=== PATIENT | female | born 1940 | race Caucasian/White ===

== ENCOUNTER → 2017-05-10 | Outpatient (CLI) | payer OTHER | LOC: CIMAGING 14:23 | PROVIDERS: ATTEND Internal Medicine | DX: Z12.31 Encounter for screening mammogram for malignant neoplasm of breast (principal) | CPT/HCPCS: G0202 ==

== ENCOUNTER → 2017-11-29 | Outpatient (CLI) | payer OTHER | LOC: CIMAGING 15:03 | PROVIDERS: ATTEND Nurse Practitioner | DX: M79.605 Pain in left leg (principal) | CPT/HCPCS: 93971-PO ==

== ENCOUNTER → 2018-04-09 | Outpatient (CLI) | payer OTHER | LOC: BHFA 16:00 | PROVIDERS: ATTEND Internal Medicine Interventional Cardiology | DX: E78.5 Hyperlipidemia, unspecified (principal); I47.1 Supraventricular tachycardia ==

== ENCOUNTER → 2018-04-29 | Outpatient (CLI) | payer OTHER | LOC: BHFA 13:30 | PROVIDERS: ATTEND Internal Medicine Cardiovascular Disease | DX: I47.1 Supraventricular tachycardia (principal) | CPT/HCPCS: 78452; 93017; A9500 ==

== ENCOUNTER → 2018-07-17 | Outpatient (CLI) | payer OTHER | LOC: CIMAGING 10:04 | PROVIDERS: ATTEND Internal Medicine | DX: Z12.31 Encounter for screening mammogram for malignant neoplasm of breast (principal) ==

== ENCOUNTER 2018-07-24 11:45 | Observation (INO) | payer OTHER ==
[2018-07-24] MEDS ORDERED: NS 1,000 ML IV ONE (11:49)
[2018-07-24 12:30] LABS: PLATELET COUNT 232 10^3/uL (150-400)
[2018-07-24 12:37] LABS: INR 0.97 (0.83-1.16); PROTIME(PATIENT) 13.1 SEC (12.0-15.0)
[2018-07-24] MEDS ORDERED: LIDOCAINE 1% 300 MG/30 ML SDV ONE (14:21)
[2018-07-24] MEDS ORDERED: HEPARIN 10,000 UNIT/10 ML MDV (1,000 UNIT/ML) ONE (14:22)
[2018-07-24] MEDS ORDERED: BUPIVACAINE 0.75% 10 ML SDV ONE (14:22)
[2018-07-24] MEDS ORDERED: ISOPROTERENOL HCL/D5W 0.2 MG/50 ML BAG IV ONE ×2 (14:22→15:42)
--- NOTE | 2018-07-24 14:30 | PDANEPAE ---
ANE Past Medical History - Cardiovascular History Hx Arrhythmias: Yes - Pulmonary History Hx Sleep Apnea: No - Endocrine History Hx Diabetes: No Hypothyroid: No Hyperthyroid: No Obesity: no ANE Review of Systems Review of Systems: ANE Patient History - Allergies Allergies/Adverse Reactions: butorphanol tartrate [From Stadol] Allergy (Intermediate, Verified 06/22/14 12: 34) RESPIRATORY DEPRESSION cephalexin monohydrate [From Keflex] Allergy (Intermediate, Verified 06/22/14 10 :22) Rash levofloxacin [Levofloxacin] Allergy (Intermediate, Verified 06/22/14 10:22) Rash nitrofurantoin [From Macrobid] Allergy (Intermediate, Verified 06/22/14 10:22) Rash nitrofurantoin macrocrystalline [From Macrobid] Allergy (Intermediate, Verified 06/22/14 10:22) Rash Penicillins Allergy (Intermediate, Verified 06/22/14 10:22) Rash - Home Medications Home Medications: Losartan/Hctz 50/12.5 [Hyzaar 50/12.5MG (*)] 1 tab PO DAILY 12/11/09 [Last Taken Unknown] Montelukast Sodium [Singulair 10 mg (*)] 10 mg PO DAILY 06/22/14 [Last Taken Unknown] Cholecalciferol Vit D3 [Vitamin D3 (*)] 1,000 units PO DAILY 07/17/18 [Last Taken Unknown] Omeprazole 20 mg PO DAILY 07/17/18 [Last Taken Unknown] - Smoking Hx Smoking Status: Former smoker ANE Labs/Vital Signs - Labs Result Diagrams: 07/24/18 12:00 07/24/18 12:00 - Vital Signs Height: 167.64 cm Weight: 57.606 kg ANE Physical Exam - Airway Neck exam: decreased ROM Mallampati Score: Class 1 Mouth exam: normal dental/mouth exam - Pulmonary Pulmonary: no respiratory distress - Cardiovascular Cardiovascular: regular rate and rhythym - ASA Status ASA Status: II ANE Anesthesia Plan Anesthesia Plan: general endotracheal anesthesia
[2018-07-24] MEDS ORDERED: DEXAMETHASONE 4 MG/ML VIAL ONE (14:47)
[2018-07-24] MEDS ORDERED: ROCURONIUM 100 MG/10 ML VIAL ONE (14:47)
[2018-07-24] MEDS ORDERED: ONDANSETRON 4 MG/2 ML VIAL ONE (14:47)
[2018-07-24] MEDS ORDERED: PROPOFOL/EMULSION 500 MG/50 ML BOTTLE IV ONE ×2 (14:48→15:49)
[2018-07-24] MEDS ORDERED: fentaNYL 100 MCG/2 ML INJ ONE (14:48)
--- NOTE | 2018-07-24 23:40 | POSTANESTH ---
Post Anesthetic Evaluation Cardiovascular Status: Normal, Stable Respiratory Status: Normal, Stable Level of Consciousness/Mental Status: Can Participate in Eval Pain Control: Adequate, Prn Tx Ordered Nausea/Vomiting Control: Adequate, Prn Tx Ordered Complications Possibly Related to Anesthesia: None Noted
[2018-07-25 05:22] LABS: PLATELET COUNT 182 10^3/uL (150-400)
[2018-07-25 07:10] VITALS: BP 130/65
[2018-07-25] MEDS ORDERED: IBUPROFEN 200 MG TAB PO ONE (07:42)
[2018-07-25] MEDS ORDERED: CHOLECALCIFEROL VIT D3 1,000 UNITS TAB PO SCH (09:00)
[2018-07-25] MEDS ORDERED: MONTELUKAST SODIUM 10 MG TAB PO SCH (09:00)
[2018-07-25] MEDS ORDERED: PROPAFENONE HCL SR 225 MG CAP PO SCH (09:00)
[2018-07-25] MEDS ORDERED: LOSARTAN/HCTZ 50/12.5 1 TAB PO SCH (09:00)
[2018-07-25] MEDS ORDERED: PANTOPRAZOLE SODIUM 40 MG TAB PO SCH (09:00)
--- NOTE | 2018-07-25 10:31 | ASDISCHSUM ---
Discharge Information Plan Status:Home with No Needs Medically Cleared to Leave:07/24/2018 Discharge Date:07/24/2018 CM D/C Disposition:Home, Routine, Self-Care ADT D/C Disposition:Home, Routine, Self-Care Projected Discharge Date:07/24/2018 Transportation at D/C:Family Discharge Delay Reason: Follow-Up Date:07/24/2018 Discharge Slot: Final Diagnosis: Placement Information Patient Contact Information Contact Name:GALO Relationship:Friend Address:[address] Work Phone: City:[facility] Phone: State/Zip Code: Email: Financial Information Financial Class:Medicare Primary Plan Desc:MEDICARE OUTPATIENT Primary Plan Number:[id number] Secondary Plan Desc:HUMA[employer] Secondary Plan Number:[id number] Assessment Information LACE LACE Length of stay for Answers: Less than 1 day current admission Acuity / Level of Answers: No Care: Did the patient have an inpatient admission? # of Emergency department Answers: 0 visits in the last 6 months Date Signed: 07/25/2018 10:30 AM Electronically Signed By:Zofia Keller RN Intervention Information Intervention Type:*LAINEY-Signed Date of Service:07/25/2018 10:13 AM Patient Type:Observation Staff Member:Shelia Hayes Hours: Discipline: Severity: Comment:
--- NOTE | 2018-07-25 19:52 | CPEKG ---
Test Reason : OPEN Blood Pressure : / mmHG Vent. Rate : 079 BPM Atrial Rate : 079 BPM P-R Int : 143 ms QRS Dur : 074 ms QT Int : 388 ms P-R-T Axes : 074 046 -38 degrees QTc Int : 445 ms Sinus rhythm Probable left atrial enlargement Confirmed by Kj Pimentel ([id number]) on 07/25/2018 7:52:45 PM Referred By: Kj Pimentel Confirmed By:Kj Pimentel
--- NOTE | 2018-07-25 20:03 | CPEKG ---
Test Reason : OPEN Blood Pressure : / mmHG Vent. Rate : 099 BPM Atrial Rate : 100 BPM P-R Int : 138 ms QRS Dur : 084 ms QT Int : 338 ms P-R-T Axes : 081 045 002 degrees QTc Int : 434 ms Sinus rhythm Right atrial enlargement Minimal ST depression, anterolateral leads Confirmed by Kj Pimentel ([id number]) on 07/25/2018 8:02:26 PM Referred By: jK Pimentel Confirmed By:Kj Pimentel
--- NOTE | 2018-07-25 20:03 | CPEKG ---
Test Reason : OPEN Blood Pressure : / mmHG Vent. Rate : 069 BPM Atrial Rate : 069 BPM P-R Int : 137 ms QRS Dur : 093 ms QT Int : 420 ms P-R-T Axes : 051 048 003 degrees QTc Int : 450 ms Sinus rhythm Confirmed by Kj Pimentel ([id number]) on 07/25/2018 8:02:35 PM Referred By: Kj Pimentel Confirmed By:Kj Pimentel
--- NOTE | 2018-07-26 05:40 | GDS ---
[f rep st] DISCHARGE SUMMARY SUPERVISING HARMONICA MAKER: Kj Pimentel MD. ADMISSION DIAGNOSIS: Supraventricular tachycardia. DISCHARGE DIAGNOSIS: Supraventricular tachycardia with accessory pathway. PROCEDURES PERFORMED DURING HOSPITALIZATION: 1. Electrocardiogram. 2. Electrophysiology study. HOSPITAL COURSE: The patient presented 07/24/2018, for an SVT ablation in the setting of increasingl y frequent symptomatic episodes of supraventricular tachycardia. She underwent electrophysiology taylor dy with Dr. Kj Pimentel. EP study demonstrated an accessory pathway which was quite close to her intr insic electrical system. Dr. Pimentel did not perform ablation at that time given her increased risk of r equiring a permanent pacemaker post ablation. She has done well following her EP study, and she has been ambulating around her room this morning without issue. She is appropriate and stable for discha rge home today. CURRENT PHYSICAL EXAMINATION: GENERAL: She is alert and oriented x4, in no apparent distress. CARRIE L SIGNS: Blood pressure 130/65, heart rate 69, respiratory rate 17, SpO2 94% on room air, temp 36.8 degrees Celsius. RESPIRATORY: Lungs are clear to auscultation without adventitious breath sounds. CARDIAC: Normal S1 and S2. No S3 or S4. Rhythm is regular. ABDOMEN: Normoactive bowel sounds ector es all 4 quadrants. No masses or tenderness. Abdomen is soft to palpation. SKIN: [place], warm, dry, without cyanosis, clubbing, or peripheral edema. EXTREMITIES: Bilateral pursestring sutures remove d intact without evidence of hematoma, redness, oozing, swelling, or warmth. Pulses are 2+ bilateral ly. No edema. LABORATORY: Laboratory studies drawn today: CBC and BMP are stable compared to pre procedure. PROCEDURES PERFORMED DURING HOSPITALIZATION: Electrophysiology study as mentioned above. Electrocar diogram this morning demonstrates normal sinus rhythm without new ST-T wave or [place] interval abnormalit ies. DISCHARGE DISPOSITION: Patient will be discharged home in stable condition. She is under activity r estrictions as below. DISCHARGE MEDICATIONS: Please see discharge medication reconciliation sheet for full details. Ruthie styles note that patient has been started on propafenone SR 225 mg twice daily and diltiazem ER 120 mg sean ly. DISCHARGE INSTRUCTIONS: Post EP study instructions reviewed with patient in detail. We discussed ac tivity restrictions including lifting no more than 10 pounds and avoidance of submerged bathing for 1 0 days. She will get up and walk around every 45 minutes for the next 45 days. We also reviewed ble eding precautions, medication compliance, monitoring for signs or symptoms of infection, and monitori ng sustained arrhythmia. At the time of discharge, patient verbalizes understanding of all discharge instructions without questions or concerns. She will follow up for an EKG in 1 week in our clinic, and she will contact us if she experiences any new or concerning symptoms prior to her upcoming visit . Time spent on discharge greater than 30 minutes. /[id number]/MODL
[2018-07-26] MEDS ORDERED: DILTIAZEM CD 120 MG CAP PO SCH (09:00)
== END 2018-07-25 12:17 | disposition home or self-care (01) ==
LOC: FCATH 11:45 → F2W 16:33
PROVIDERS: ADMIT Internal Medicine Cardiovascular Disease; ATTEND Internal Medicine Cardiovascular Disease
PROC: 4A023FZ Measurement of Cardiac Rhythm, Percutaneous Approach (ICD-10-PCS; principal; 2018-07-24)
DX: I47.1 Supraventricular tachycardia (principal); E78.2 Mixed hyperlipidemia; I10 Essential (primary) hypertension; M16.0 Bilateral primary osteoarthritis of hip; Z85.820 Personal history of malignant melanoma of skin
CPT/HCPCS: 93005; 93620; 93621; 93623; C1730; C1731; J1100; J1644; J2405; J2704; J3010

== ENCOUNTER 2018-09-23 10:51 | Observation (INO) | payer OTHER ==
[~2018-09-23 10:51] MED LIST: DEXAMETHASONE 4 MG/ML VIAL ONE; ONDANSETRON 4 MG/2 ML VIAL ONE; PROPOFOL 200 MG/20 ML VIAL ONE; ROCURONIUM 50 MG/5 ML VIAL ONE
[2018-09-23] MEDS ORDERED: NS 1,000 ML IV ONE (10:55)
--- NOTE | 2018-09-23 11:06 | PDGENHP ---
History & Physical Chief Complaint: svt Relevant Physical Exam: s1s2 rrr. cta. ao3 Cardiorespiratory Assessment: for svt ablation. patient understands high risk of av block and potential need for pacemaker. angina despite negative stress test. coronary angiogram to be done prior to ablation
[2018-09-23 11:41] LABS: PLATELET COUNT 272 10^3/uL (150-400)
--- NOTE | 2018-09-23 11:53 | PDANEPAE ---
ANE Past Medical History - Cardiovascular History Hx Arrhythmias: Yes Hx Chest Pain: No Hx Palpitations: Yes - Pulmonary History Hx COPD: No Hx Asthma/Reactive Airway Disease: No Hx Oxygen in Use at Home: No Hx Sleep Apnea: No - Endocrine History Hx Diabetes: No Hypothyroid: No - Renal History Hx Renal Disorders: No - Liver History Hx Hepatic Disorders: No - Neurological & Psychiatric Hx Hx Neurological and Psychiatric Disorders: No - GI History GERD: no - Chronic Pain History Chronic Pain: Yes ANE Review of Systems Review of Systems: ANE Patient History - Allergies Allergies/Adverse Reactions: butorphanol tartrate [From Stadol] Allergy (Intermediate, Verified 06/22/14 12: 34) RESPIRATORY DEPRESSION cephalexin monohydrate [From Keflex] Allergy (Intermediate, Verified 06/22/14 10 :22) Rash levofloxacin [Levofloxacin] Allergy (Intermediate, Verified 06/22/14 10:22) Rash nitrofurantoin [From Macrobid] Allergy (Intermediate, Verified 06/22/14 10:22) Rash nitrofurantoin macrocrystalline [From Macrobid] Allergy (Intermediate, Verified 06/22/14 10:22) Rash Penicillins Allergy (Intermediate, Verified 06/22/14 10:22) Rash - Home Medications Home Medications: Losartan/Hctz 50/12.5 [Hyzaar 50/12.5MG (*)] 1 tab PO DAILY 12/11/09 [Last Taken 09/22/18] Montelukast Sodium [Singulair 10 mg (*)] 10 mg PO DAILY 06/22/14 [Last Taken ] Cholecalciferol Vit D3 [Vitamin D3 (*)] 1,000 units PO DAILY 07/17/18 [Last Taken 09/22/18] Omeprazole 20 mg PO DAILY 07/17/18 [Last Taken 09/22/18] Aspirin [Aspirin 325 mg (*)] 325 mg PO DAILY PRN 09/10/18 [Last Taken 09/21/18] Loteprednol 0.5% [Lotemax 0.5%] 1 drops EACHEYE DAILY 09/10/18 [Last Taken 09/21] - Smoking Hx Smoking Status: Former smoker ANE Labs/Vital Signs - Labs Result Diagrams: 09/23/18 11:15 09/23/18 11:15 - Vital Signs Height: 165 cm Weight: 57.6 kg ANE Physical Exam - Airway Neck exam: FROM Mallampati Score: Class 2 Mouth exam: normal dental/mouth exam - Pulmonary Pulmonary: no respiratory distress, no rales or rhonchi, clear to auscultation - Cardiovascular Cardiovascular: regular rate and rhythym, no murmur, rub, or gallop - ASA Status ASA Status: II ANE Anesthesia Plan Anesthesia Plan: general endotracheal anesthesia
[2018-09-23 12:03] LABS: INR 0.96 (0.83-1.16); PROTIME(PATIENT) 12.4 SEC (12.0-15.0)
[2018-09-23] MEDS ORDERED: LIDOCAINE 1% 300 MG/30 ML SDV ONE (13:23)
[2018-09-23] MEDS ORDERED: HEPARIN 10,000 UNIT/10 ML MDV (1,000 UNIT/ML) ONE (13:23)
[2018-09-23] MEDS ORDERED: BUPIVACAINE 0.75% 10 ML SDV ONE (13:24)
[2018-09-23] MEDS ORDERED: ISOPROTERENOL HCL/D5W 0.2 MG/50 ML BAG IV ONE (13:24)
[2018-09-23] MEDS ORDERED: SUGAMMADEX SODIUM 200 MG/2 ML VIAL IVP ONE (13:27)
[2018-09-23] MEDS ORDERED: ROCURONIUM 50 MG/5 ML VIAL ONE ×2 (13:27→15:16)
[2018-09-23] MEDS ORDERED: PHENYLEPHRINE HCL 100 MCG/ML SYR ONE (13:28)
[2018-09-23] MEDS ORDERED: IOPAMIDOL (ISOVUE-300) 100 ML BTL ONE (14:03)
[2018-09-23] MEDS ORDERED: fentaNYL 100 MCG/2 ML INJ ONE (14:35)
[2018-09-23] MEDS ORDERED: GLYCOPYRROLATE 0.2 MG/1 ML VIAL ONE (16:19)
--- NOTE | 2018-09-23 16:24 | CPEKG ---
Test Reason : OPEN Blood Pressure : / mmHG Vent. Rate : 082 BPM Atrial Rate : 082 BPM P-R Int : 157 ms QRS Dur : 083 ms QT Int : 358 ms P-R-T Axes : 086 056 049 degrees QTc Int : 418 ms Sinus rhythm Biatrial enlargement Borderline diffuse ST abnl inferolateral leads Confirmed by Betsy Watson ([id number]) on 09/23/2018 4:23:59 PM Referred By: Kj Pimentel Confirmed By:Betsy Watson
--- NOTE | 2018-09-23 16:38 | PDDXCAT ---
Diagnostic Cath Note - . Date: 09/23/18 Global Marketing Operations Manager: Loren Indication: other (ST depression on ETT, continued chest pain despite normal MPI ) - Procedure Access: right groin Procedure: left heart catheterization, coronary angiography - Materials Left Heart Cath size: 6F Left Heart Cath materials: JL4.0, JR4.0 - Findings-Left Heart Catheterization LM: normal LAD: normal LCX: normal, dominant RCA: normal, non dominant EDP: 17 mmHg Complications: none Estimated blood loss: <50ml Closure method: Angioseal Patient Problems: Problems Problem Status Onset Supraventricular tachycardia Acute
--- NOTE | 2018-09-23 16:39 | EPPROC ---
Electrophysiology Procedure Note: ELECTROPHYSIOLOGIC STUDY AND CATHETER MEDIATED ABLATION FOR SUBEUSTACHIAN ISTHMUS DEPENDENT COUNTERCLOCKWISE ATRIAL FLUTTER: INDICATION: SVT at 150 bpm that terminated with adenosine Prior EP study showing anteroseptal AV accessory pathway but no SVT induced Failed therapy with propafenone PROCEDURES PERFORMED: 91101-19 EP evaluation with RA/RV/LA pace/record, with arrhythmia induction 26254-03 EP evaluation with RA/RV pace record, insert/reposition catheter, with arrhythmia induction 77720 SVT ablation 20019 3D mapping Fluoroscopy Catheters & Anesthesia: The patient arrived in the Electrophysiology Laboratory in the fasting state. The right clavicular region, right groin, and left groin area were prepped and draped in the usual sterile manner. Anesthesiologist administered general anesthesia. Appropriate non-invasive blood pressure, pulse oximetry and end- tidal CO2 monitoring was established. Coronary angiogram was done due to abnormal ETT (normal MPI) and stress test. This has been dictated separately. All catheters were placed percutaneously using the modified Seldinger technique , and advanced into position under fluoroscopic guidance. One #7 Trinidadian deflectable octapolar electrode catheter was advanced to the His-bundle position via the left femoral vein (2mm spacing; except the proximal ring which was 25cm from the tip used for unipolar recordings). This was later changed to Halo catheter. One #7 Trinidadian deflectable catheter with 10 pairs of electrodes was placed via the left femoral vein into the coronary sinus. Heparin was administered to keep ACT > 200 seconds. Programmed stimulation was performed from the right atrium, coronary sinus ( left atrium) and right ventricle. Parahisian pacing demonstrated all retrograde conduction over the AV node. On arrival to the Electrophysiology Laboratory the patient was in sinus rhythm. Atrial flutter, CL 210-230 ms was easily induced by CS pacing. Entrainment mapping from septal TA, proximal CS and distal CS confirmed cavotricuspid isthmus dependent atrial flutter. AFL, sustained, was induced x 2. Once AFIB was induced and required cardioversion. In preparation for ablation of typical atrial flutter, a high-resolution 3D (3 dimensional) Carto electroanatomical map of the sub-Eustachian isthmus and right atrium was obtained during pacing of the posterolateral coronary sinus. For ablation of typical atrial flutter, one Mobi sheath was placed in the right atrium. A #8 Trinidadian deflectable quadrapolar electrode catheter (2mm-5mm-2mm spacing) with 3.5 mm STSF irrigated tip electrode and location sensor for the Popularo mapping system was inserted in the long sheath and advanced to the right atrium. Radiofrequency applications were applied between the tricuspid annulus at 0630 oclock as seen in the [place] view and the inferior vena cava. This achieved conduction block across the isthmus. Following ablation of the atrial flutter, programmed atrial stimulation was performed in the baseline state and during infusion of isoproterenol 4 mcg/min. No atrial arrhythmias were inducible post ablation. Post ablation, a high-resolution electroanatomical map of the sub-Eustachian isthmus was obtained during pacing of the posterolateral coronary sinus. This confirmed conduction block across the sub-Eustachian isthmus. Bidirectional block was also confirmed by pacing. Pre and post ablation for AFL, we noted anteroseptal AP (earliest activation in parahisian area) but no ortho/anti dromic SVT was induced and therefore AP ablation was not done. SCL 745 ms AH 60 ms HV 27 ms The catheters were removed. Sheaths were removed in the EP lab after applying subcutaneous purse string suture. Arterial access was closed using Angioseal. The patient was transferred to the cardiovascular holding area in stable condition. There were no apparent complications. CONCLUSIONS: 1. 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 2. Successful catheter mediated ablation of cavotricuspid isthmus achieving bi -directional conduction block across cavotricuspid isthmus. 3. No atrial arrhythmias inducible post ablation. 4. Anteroseptal AP present but not ablated since no orthodromic or antidromic AVRT was inducible. 5. No apparent complications. Patient Problems: Problems Problem Status Onset Supraventricular tachycardia Acute
[2018-09-23] MEDS ORDERED: ASPIRIN 325 MG TAB PO PRN (16:42)
[2018-09-24 04:27] LABS: PLATELET COUNT 249 10^3/uL (150-400)
[2018-09-24] MEDS ORDERED: LOSARTAN/HCTZ 50/12.5 1 TAB PO SCH (09:00)
[2018-09-24] MEDS ORDERED: PANTOPRAZOLE SODIUM 40 MG TAB PO SCH (09:00)
[2018-09-24] MEDS ORDERED: DILTIAZEM CD 120 MG CAP PO SCH (09:00)
[2018-09-24] MEDS ORDERED: LOTEPREDNOL 0.5% EACHEYE SCH (09:00)
[2018-09-24] MEDS ORDERED: MONTELUKAST SODIUM 10 MG TAB PO SCH (09:00)
[2018-09-24 11:05] VITALS: BP 116/63
--- NOTE | 2018-09-24 16:13 | GDS ---
[f rep st] DISCHARGE SUMMARY ADMISSION DIAGNOSIS: Narrow-complex tachycardia DISCHARGE DIAGNOSES: 1. Atrial flutter, status post successful catheter mediated ablation of the cavotricuspid isthmus. 2. Anteroseptal accessory pathway present without evidence of orthodromic or antidromic AVRT. PROCEDURES PERFORMED DURING HOSPITALIZATION: 1. Electrophysiology study. 2. Atrial flutter ablation. 3. Echocardiogram. 4. Electrocardiogram. HOSPITAL COURSE: The patient presented 09/23/2018, for a repeat EP study in the setting of increasingly frequent and symptomatic episodes of palpitations with failure of medical management with propafenone and flecainide. Electrophysiology study demonstrated an anteroseptal accessory pathway without inducible orthodromic or antidromic AVRT. She did have easily inducible atrial flutter, which was successfully ablated achieving bidirectional conduction block across the cavotricuspid isthmus. She had no intraprocedure complications and she has done well overnight. She is appropriate and stable for discharge home today. CURRENT PHYSICAL EXAMINATION: General: Alert and oriented x4 in no apparent distress. VITAL SIGNS: Blood pressure 116/63, heart rate 64, respiratory rate 16, SpO2 92% on room air, temp 36.8 degrees Celsius. RESPIRATORY: Lungs are clear to auscultation without adventitious breath sounds. CARDIAC: Normal S1, S2. No S3, S4. Rhythm is regular. ABDOMEN: Normoactive bowel sounds times all 4 quadrants. No masses or tenderness. Soft to palpation. SKIN: [place], warm, dry, without cyanosis, clubbing, or peripheral edema. EXTREMITIES: Bilateral pursestring sutures removed intact without evidence of hematoma, redness, oozing, swelling, or warmth. Pulses are 2+ bilaterally. No edema. LABORATORY STUDIES: Drawn today demonstrate relatively stable CBC and BMP compared to preprocedure. Troponin is 0.57, please note the elevated troponin is to be expected in the postprocedure setting. PROCEDURES: Electrophysiology study and atrial flutter ablation as mentioned above. Preliminary review of echocardiogram this morning demonstrates stable left ventricular systolic function with moderate TR, RVSP 40mmHg, and without new wall motion abnormalities or pericardial effusion. Electrocardiogram this morning demonstrates normal sinus rhythm with a normal MN interval and without new ST or T-wave abnormalities. DISCHARGE DISPOSITION: Patient will be discharged home in stable condition. She is under activity restrictions as below. DISCHARGE MEDICATIONS: Please see discharge medication reconciliation sheet for full details. Please note, the patient will continue aspirin 81 mg daily for 6 weeks. DISCHARGE INSTRUCTIONS: Post atrial flutter ablation instructions reviewed with patient and her sister in detail. 1. We discussed activity restrictions, including lifting no more than 10 pounds and avoidance of submerged bathing for 10 days. 2. She will get up and walk around every 45 minutes for 45 days while awake. 3. We reviewed bleeding precautions, medication compliance, monitoring for signs and symptoms of infection, and monitoring for sustained arrhythmia. At the time of discharge, patient verbalizes understanding regarding all discharge instructions without questions or concerns. She will have a 2 week ZIO monitor placed to rule out silent atrial fibrillation, and she will follow up in [address] Pimentel as scheduled. She will contact [facility] with any new or concerning symptoms prior to upcoming visit. Time spent on discharge greater than 30 minutes. /[id number]/MODL MTDD
--- NOTE | 2018-09-24 18:39 | ECHO ---
[email or web address] [address] [address] Main: [phone] Echocardiography Examination Transthoracic Name: DAKSHA ZHANG MR#: [id number] Study Date: 09/24/2018 Study Time: 01:12 PM Date of : 1940 Age: 77 year(s) Height: 165.1 cm (65 in.) Weight: 57.15 kg (126 lb.) BSA: 1.63 m2 Gender: Female Examination: Echo Contrast: Image Quality: Adequate Rhythm: Heart Rate: BP: 116 mmHg/63 mmHg Indication: F/U post EP study/atriasl flutter Procedure Staff Referring Physician: Frame Coverer: Keke Fernandez [facility] Reading Physician: Devonte Mckinney MD Requesting Provider: Ordering Physician: Anahy Vazquez Indication: F/U post EP study/atriasl flutter Measurements Chambers AV/MV Label Value Normal Value Label Value Normal Value LVDd, 2D 3.6 cm (3.9cm - 5.3cm) AV PGmean 7 mmHg LVDs, 2D 2 cm (2.1cm - 4cm) AV Vmax 1.75 m/s IVSd, 2D 0.7 cm (0.6cm - 1.1cm) MV E Vmax 0.88 m/s LVPWd, 2D 0.8 cm MV A Vmax 0.61 m/s LVEF, 2D 78 % (54% - 74%) MV E/A 1.44 LA Volume, BP 43 ml (22ml - 52ml) MV E/E' lateral 9.4 LADs, 2D 3.3 cm (2.7cm - 3.8cm) MV E/E' septal 10.1 (0.45 - 1.25) LAESV index, BP 26.4 ml/m2 MV E' septal 0.09 m/s Additional Vessels MV E' lateral 0.09 m/s Label Value Normal Value MV E/E' mean 9.78 AoAsc 2.9 cm MV E' mean 0.09 m/s AoRoot, MM 2.4 cm (2.2cm - 3.7cm) TV/PV Label Value Normal Value RA Pressure 5 mmHg RVSP 40 mmHg TR Pmax 35 mmHg TR Vmax 2.95 m/s Patient: DAKSHA ZHANG Study Date: 09/24/2018 Page 1 of 3 01:12 PM Conclusions Left Ventricle: Left ventricle is normal in size. Global hypercontractility of the left ventricle. EF range is estimated at 75 % - 80 %. Right Ventricle: Right ventricular systolic function is normal. Left Atrium: The left atrium is normal in size. Right Atrium: The right atrium is mildly dilated. Tricuspid Valve: Moderate tricuspid regurgitation. Right Ventricular systolic pressure is measured at 40 mmHg. Pulmonary artery pressure is mildly increased. Pericardium: No pericardial effusion. Findings Left Ventricle: Left ventricle is normal in size. Global hypercontractility of the left ventricle. EF range is estimated at 75 % - 80 %. Left ventricle wall thickness is normal. There are no regional wall motion abnormalities. Left ventricular diastolic function parameters are normal. IVS: The septum is intact. Right Ventricle: Normal size right ventricle. Right ventricular systolic function is normal. Left Atrium: The left atrium is normal in size. IAS: Normal appearing atrial septum. Right Atrium: The right atrium is mildly dilated. Mitral Valve: Mitral valve appears structurally normal. Trivial mitral regurgitation. No mitral valve stenosis. Aortic Valve: Aortic leaflets exhibit normal cuspal separation. Trivial aortic regurgitation is present. There is no aortic stenosis. Tricuspid Valve: Tricuspid valve leaflets are structurally normal. Moderate tricuspid regurgitation. No tricuspid valve stenosis. Right Ventricular systolic pressure is measured at 40 mmHg. Pulmonary artery pressure is mildly increased. Pulmonic Valve: Pulmonic valve is poorly visualized. Pulmonic leaflets exhibit normal cuspal separation. No pulmonic valve regurgitation is evident. There is no pulmonic valve stenosis. Aorta: The aorta is normal. The aortic root size in M-mode measures 2.4 cm. The ascending aorta measures 2.9 cm. Aorta Measurements AoRoot, MM is 2.4 cm. Pulmonary Artery: The pulmonary artery morphology appears normal. Patient: DAKSHA ZHANG Study Date: 09/24/2018 Page 2 of 3 01:12 PM IVC: The inferior vena cava is normal in size and course. Pericardium: No pericardial effusion. No pleural effusion present. Exam Details Procedure Ordered: Echo Procedure Status: Routine study Image Quality: Adequate Facility Location: Cardiac Echo 1 (No Signature Object) Patient: DAKSHA ZHANG Study Date: 09/24/2018 Page 3 of 3 01:12 PM [id number]
--- NOTE | 2018-09-25 05:32 | CPEKG ---
Test Reason : OPEN Blood Pressure : / mmHG Vent. Rate : 096 BPM Atrial Rate : 096 BPM P-R Int : 161 ms QRS Dur : 082 ms QT Int : 357 ms P-R-T Axes : 076 052 044 degrees QTc Int : 452 ms Sinus rhythm When compared with ECG of 09/23/2018 at 11:18 am repol abnl resolved Confirmed by Betsy Watson ([id number]) on 09/25/2018 5:31:39 AM Referred By: Kj Pimentel Confirmed By:Betsy Watson
--- NOTE | 2018-09-25 05:38 | CPEKG ---
Test Reason : OPEN Blood Pressure : / mmHG Vent. Rate : 068 BPM Atrial Rate : 067 BPM P-R Int : 145 ms QRS Dur : 073 ms QT Int : 384 ms P-R-T Axes : 070 044 034 degrees QTc Int : 409 ms Sinus rhythm Probable left atrial enlargement Confirmed by Betsy Watson ([id number] on 09/25/2018 5:37:44 AM Referred By: Kj Pimentel Confirmed By:Betsy Watson
== END 2018-09-24 14:35 | disposition home or self-care (01) ==
LOC: FCATH 10:51 → F2W 16:43
PROVIDERS: ADMIT Internal Medicine Cardiovascular Disease; ATTEND Internal Medicine Cardiovascular Disease
PROC: B2111ZZ Fluoroscopy of Multiple Coronary Arteries using Low Osmolar Contrast (ICD-10-PCS; principal; 2018-09-23)
PROC: 02583ZZ Destruction of Conduction Mechanism, Percutaneous Approach (ICD-10-PCS; principal; 2018-09-23)
PROC: 4A023FZ Measurement of Cardiac Rhythm, Percutaneous Approach (ICD-10-PCS; principal; 2018-09-23)
DX: I48.92 Unspecified atrial flutter (principal); R94.39 Abnormal result of other cardiovascular function study; R07.9 Chest pain, unspecified; I10 Essential (primary) hypertension; I36.1 Nonrheumatic tricuspid (valve) insufficiency; E78.5 Hyperlipidemia, unspecified; I70.0 Atherosclerosis of aorta; M16.11 Unilateral primary osteoarthritis, right hip; M16.12 Unilateral primary osteoarthritis, left hip; Z85.820 Personal history of malignant melanoma of skin
CPT/HCPCS: 93005; 93306; 93458; 93613; 93621; 93623; 93653; C1730; C1731; C1732; C1760; C1766; J1100; J1644; J2370; J2405; J2704; J3010; Q9967